=== PATIENT | female | born 2000 | race Caucasian/White ===

== ENCOUNTER 2019-12-12 14:01 | Emergency (ER) | payer OTHER ==
[~2019-12-12] VITALS: Ht 165.1 cm; Wt 74.4 kg
[2019-12-12 14:04] VITALS: BP 122/62
--- NOTE | 2019-12-12 14:17 | NUR ---
COLLEGE ADMISSIONS COUNSELOR: PT AMBULATORY WITH STEADY GAIT TO ROOM AT THIS TIME. KATY
--- NOTE | 2019-12-12 15:46 | NUR ---
Patient given discharge instructions and Rx, they have confirmed that they understand the instructions. Patient ambulatory with steady gait.
== END 2019-12-12 15:48 | disposition home or self-care (01) ==
LOC: ED 15:28
DX: S60.572A Other superficial bite of hand of left hand, initial encounter (principal); W55.01XA Bitten by cat, initial encounter; Y93.89 Activity, other specified; Y92.89 Other specified places as the place of occurrence of the external cause; Y99.0 Civilian activity done for income or pay
CPT/HCPCS: 99283